=== PATIENT | female | born 1990 | race Caucasian/White ===

== ENCOUNTER 2017-10-09 13:28 | Emergency (ER) | payer OTHER ==
[~2017-10-09] VITALS: Ht 170.2 cm; Wt 59.0 kg
[2017-10-09 14:04] LABS: BILIRUBIN,URINE NEGATIVE (NEGATIVE); COLOR,URINE YELLOW (YELLOW); KETONES,URINE NEGATIVE (NEGATIVE); LEUKOCYTE ESTERASE ,URINE NEGATIVE (NEGATIVE); NITRITE,URINE NEGATIVE (NEGATIVE); PROTEIN,URINE DIPSTICK NEGATIVE (NEGATIVE); URINE UROBILINOGEN 0.2 mg/dL (0.2 - 1)
[2017-10-09 14:05] LABS: PREGNANCY TEST, URINE NEGATIVE (NEGATIVE)
[2017-10-09 14:07] LABS: CLARITY,URINE SL CLOUDY (CLEAR)
[2017-10-09 14:26] LABS: EPITHELIAL CELLS,URINE FEW /LPF; TRANSITIONAL EPI CELLS,URINE FEW
[2017-10-09 14:50] VITALS: BP 115/66
== END 2017-10-09 15:13 | disposition home or self-care (01) ==
LOC: ER 13:28
DX: R53.1 Weakness (principal); T88.7XXA Unspecified adverse effect of drug or medicament, initial encounter
CPT/HCPCS: 36415; 81001; 81025; 82948; 87086; 93005; 99283